=== PATIENT | male | born 1980 | race Caucasian/White ===

== ENCOUNTER 2025-07-29 21:12 | Emergency (ER) | payer BC, OTHER ==
[2025-07-29] MEDS: cefTRIAXone 1 GM, Lidocaine 1% 2.1 ML IM ONE (22:35)
== END 2025-07-29 22:40 | disposition home or self-care (01) ==
LOC: JD.ED 21:12
DX: S61.212A Laceration without foreign body of right middle finger without damage to nail, initial encounter (principal); X58.XXXA Exposure to other specified factors, initial encounter
CPT/HCPCS: 12001; 96372; 99282; J0696; J2003